=== PATIENT | female | born 1960 | race Caucasian/White ===

== ENCOUNTER 2019-09-03 14:22 | Emergency (ER) | payer OTHER ==
[~2019-09-03] VITALS: Ht 165.1 cm; Wt 113.4 kg
[~2019-09-03 14:22] MED LIST: ALLO300T PO; CEFD300C37 PO; DICL1TAB2 PO; METO25TA35 PO
--- NOTE | 2019-09-03 14:58 | NUR ---
THIS IS A 59 YO FEMALE WHO PRESENTS TO THE ER C/O ONE EPISODE OF N/V AND FEELING DIZZY SINCE 1200 TODAY. PT HAS 160'S SVT ON TRAFFIC COORDINATOR, HX OF PAT AND "SOME OTHER ARRYTHMIA". PT DENIES CP. REPORTS DIFFUSE ABD PAIN. PT HAS DISTENDED ABD. REPORTS DISTENSION SINCE FRIDAY WHEN RECEIVING HYCENTRA. PT AO X 4. SKIN SLIGHTLY PALE, WARM AND DRY. RESP EVEN AND UNALBORED. PT ABLE TO SPEAK IN FULL 10-12 WORD SENTENCES W/O DIFFICULTY. IV ACCESS ESTABLISHED. PT ON CARDIAC, BP ADN O2 MONITORS. CALL LIGHT WITHIN REACH. WILL CONT TO MONITOR PT.
[2019-09-03] MEDS ORDERED: ADENOSINE 6 MG/2 ML ONE (15:05)
--- NOTE | 2019-09-03 15:09 | NUR ---
KAMI GONZALEZ AT BEDSIDE. PT ON HYDRAULIC JACK MECHANIC, SPO2 AND BP MONITORS. ADENOSINE PUSHED WITH KAMI GONZALEZ AT BEDSIDE. PT SUCCESSULLY CHEMICALLY CARDIOVERTED FROM SVT TO NSR 80'S. PT REPORTS FEELING BETTER. PT AO X 4. SKIN PWD. RESP EVEN AND UNLABORED. CALL LIGHT WITHIN REACH. WILL CONT TO MONITOR PT.
[2019-09-03 15:37] LABS: BASOPHILS % (AUTO) 0 % (0-1); EOSINOPHILS # (AUTO) 0.13 x10^3/uL (0-0.4); EOSINOPHILS % (AUTO) 2 % (1-7); LYMPHOCYTES # (AUTO) 0.33 x10^3/uL (1-3.4); LYMPHOCYTES % (AUTO) 4 % (22-44); MD NO; MEAN CORPUSCULAR HEMOGLOBIN 34.8 pg (27.0-34.8); MEAN CORPUSCULAR HGB CONC 33.1 g/dL (32.4-35.8); MEAN CORPUSCULAR VOLUME 105.3 fL (80-100); MEAN PLATELET VOLUME 8.2 fL (7.4-10.4); MONOCYTES # (AUTO) 0.32 x10^3/uL (0.2-0.8); MONOCYTES % (AUTO) 4 % (2-9); NEUTROPHILS % (AUTO) 91 % (42-75); PLATELET COUNT 236 x10^3/uL (130-400); RED BLOOD COUNT 3.82 x10^6/uL (3.82-5.3); RED CELL DISTRIBUTION WIDTH 15.6 % (9.6-15.2)
[2019-09-03 15:48] LABS: ANION GAP 6 mmol/L (5-15); CALCIUM 8.9 mg/dL (8.5-10.1); CHLORIDE 111 mmol/L (98-107)
[2019-09-03 15:50] LABS: CREATININE 0.92 mg/dL (0.55-1.02)
[2019-09-03] MEDS ORDERED: ADENOSINE 6 MG/2 ML IVPush ONE (16:00)
--- NOTE | 2019-09-03 16:03 | NUR ---
BREAK RN: PT LAYING ON GURNEY, NO ACUTE DISTRESS. SR PER MONITOR. FAMILY AT BEDSIDE. WAITING FOR FURTHER DISPOSITION.
[2019-09-03] MEDS ORDERED: MAGNESIUM SULFATE PMX 2GM/50ML 50 ML ONE (16:25)
[2019-09-03] MEDS ORDERED: SODIUM CHLORIDE 0.9% 1,000ML IVBOLUS ONE (16:30)
--- NOTE | 2019-09-03 16:36 | NUR ---
KAMI GONZALEZ AT BEDSIDE FOR RECHECK/EXPLANATION OF RESULTS.
[2019-09-03] MEDS ORDERED: MAGNESIUM SULFATE PMX 2GM/50ML 50 ML IV ONE (17:00)
--- NOTE | 2019-09-03 17:04 | NUR ---
PT CURRENTLY RESTING ON GURNEY. NAD NOTED. SKIN PWD. REPS EVEN AND UNLABORED. PT NSR 70'S ON ADMITTING OFFICE ESCORT. PT DENIES N/V OR DIZZINESS AT THIS TIME. PT AO X 4. PT AWARE WE ARE WAITING FOR INFUSION TO FINISH PRIOR TO DISCHARGE. FAMILY AT BEDSIDE. PT ON CONT BP, CARDIAC AND O2 MONITORS. CALL LIGHT WITHIN REACH. WILL CONT TO MONITOR PT.
[2019-09-03 17:51] VITALS: BP 135/75
== END 2019-09-03 17:54 | disposition home or self-care (01) ==
LOC: ED 16:14
DX: I47.1 Supraventricular tachycardia (principal); E83.42 Hypomagnesemia
CPT/HCPCS: 36415; 80048; 83735; 85025; 93005; 96365; 96375; 99284; J0153; J3475; J7030